=== PATIENT | female | born 1980 | race Caucasian/White ===

== ENCOUNTER 2022-02-05 18:27 | Emergency (ER) | payer BC, OTHER ==
[2022-02-05 18:57] VITALS: BMI 33.8
[2022-02-05] MEDS ORDERED: IBUPROFEN 600 MG TABLET (FP) PO ONE (19:17)
[2022-02-05 20:35] VITALS: BP 122/68; PULSE 104; RESP 18; TEMP 98.8
== END 2022-02-05 20:56 | disposition home or self-care (01) ==
LOC: JER 18:27
DX: J09.X2 Influenza due to identified novel influenza A virus with other respiratory manifestations (principal); R05.1 Acute cough; R50.9 Fever, unspecified
CPT/HCPCS: 93005; 93010; 99283-25